=== PATIENT | female | born 1980 | race African-American/Black ===

== ENCOUNTER 2023-02-18 20:50 | Emergency (ER) | payer OTHER, SELFPAY ==
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
[2023-02-18 21:12] VITALS: BP 149/100; PULSE 97; TEMP 36.6; O2SAT 100
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
== END 2023-02-18 23:10 | disposition home or self-care (01) ==
PROVIDERS: Emergency Provider Physician Assistant
DX: S89.92XA Unspecified injury of left lower leg, initial encounter (principal); S89.91XA Unspecified injury of right lower leg, initial encounter; V43.62XA Car passenger injured in collision with other type car in traffic accident, initial encounter
CPT/HCPCS: 73562; 99284